=== PATIENT | female | born 1930 | race African-American/Black ===

== ENCOUNTER 2017-06-21 23:52 | Emergency (ER) | payer OTHER, MEDICAID ==
[~2017-06-21] VITALS: Ht 172.7 cm; Wt 100.0 kg
[2017-06-22 01:13] LABS: AMMONIA < 25 uMol/L (<32)
[2017-06-22 01:16] LABS: BASOPHILS % 0.2 % (0.0-2.0); EOSINOPHILS % 1.3 % (0.0-5.0); HEMATOCRIT. 27.5 % (36.0-48.0); HEMOGLOBIN. 9.1 g/dL (12.0-16.0); LYMPHOCYTES % 9.8 % (20.0-50.0); MEAN CORPUSCULAR HEMOGLOBIN 26.2 pg (28.0-32.0); MEAN CORPUSCULAR VOLUME 79.7 fL (81.0-99.0); MEAN PLATELET VOLUME 9.2 fl (7.4-10.4); MONOCYTES % 6.8 % (2.0-8.0); NEUTROPHILS % 81.9 % (40.0-76.0); PLATELET 206 x1000/uL (130-400); RED BLOOD CELL COUNT 3.45 mill/uL (4.2-5.4); RED CELL DISTRIBUTION WIDTH 17.7 % (11.6-14.6)
[2017-06-22 01:20] LABS: CARBON DIOXIDE 27 mEq/L (21-32); CHLORIDE 108 mEq/L (98-107); ETHANOL BLOOD < 10 mg/dL; TROPONIN I < 0.02 ng/mL (0.00-0.04)
[2017-06-22 03:30] VITALS: BP 125/49
== END 2017-06-22 03:35 | disposition left against medical advice (07) ==
LOC: ER 06-22 00:05
DX: R55 Syncope and collapse (principal); D64.9 Anemia, unspecified; E78.00 Pure hypercholesterolemia, unspecified; F03.90 Unspecified dementia, unspecified severity, without behavioral disturbance, psychotic disturbance, mood disturbance, and anxiety; I10 Essential (primary) hypertension; R56.9 Unspecified convulsions
CPT/HCPCS: 36415; 70450; 71045; 80053; 82140; 84484; 85025; 93005; 99285; G0482